=== PATIENT | male | born 1930 | race Caucasian/White ===

== ENCOUNTER 2017-12-19 11:16 | Day surgery (SDC) | payer MEDICARE ==
[2017-12-19] VITALS (8 sets, daily range): BP systolic 118–134; BP diastolic 57–78
[~2017-12-19] VITALS: Ht 165.1 cm; Wt 116.8 kg
[~2017-12-19 11:16] MED LIST: ACETIC ACID2 % OT; AMLODIPINE10 MG PO; AMLODIPINE5 MG OR; AMLODIPINE5 MG PO; ASPIRIN EC81 MG PO; ASPIRIN325 MG PO; ATIVAN1 MG PO; BISACODYL10 M2 RE; CARDIZEM CD 180 PO; CARTIA XT180 MG/24 PO; CLONIDINE0.1 MG PO; COCONUT OIL O1000 MG PO; DILTIAZEM HCL PO; DILTIAZEM HCL360 MG PO; DILTIAZEM180 M1 PO; DILTIAZEM240 M1 PO; ENALAPRIL10 MG OR; ENALAPRIL10 MG PO; ENALAPRIL20 MG PO; FERROUS SULFAT325 MG PO; FISH OIL1000 MG PO; FLOMAX0.4 M1 PO; FLUARIX QUADRIV1 IN1 IM; FLUTICASONE50 MCG; FLUZONE SPLT1 M1 IM; FUROSEMIDE20 MG PO; GLUCOSAMINE1 TA1 PO; GLUCOSAMINE1500 COM PO; GLUCOSAMINE500 M1 OR; HYDROCHLORO25 MG/TAB PO; KENALOG-4040 MG/ML IA; KLOR-CON 1010 ME1 OR; LOPRESSOR50 M1 PO; MELOXICAM15 MG PO; MEMANTINE HCL5 MG PO; METOPROL TAR50 MG OR; METOPROL TAR50 MG PO; METOPROLOL TART50 MG PO; METOPROLOL50 M1 PO; MILK OF MAG30 ML/UDC PO; MULTI VITAMN OR; MULTIVITAMIN OR; NIACIN500 M1 OR; PEPCID20 MG PO; PERCOCET 5/321 COMBO PO; PRAVASTATIN40 MG PO; PROCTOSOL HC2.5 % RE; RESTORIL15 MG PO; SENNA8.6 M1 PO; SM ASPIRIN81 MG OR; TRAMADOL HCL50 MG PO; XARELTO10 MG PO
[2017-12-20 05:05] LABS: ANION GAP 15 (6-22 (CALC)); BUN 18 mg/dL (8-23); BUN/CREATININE RATIO 19 (12-20 (CALC)); CARBON DIOXIDE 26 mmol/l (22-30); CHLORIDE 103 mmol/l (95-108); GFR > 60 ML/MIN (>=60 (CALC)); GFR FOR AFR.AMER. > 60 ML/MIN (>=60 (CALC)); POTASSIUM 4.4 mmol/l (3.5-5.1); SODIUM 140 mmol/l (137-146)
[2017-12-20 05:11] LABS: HEMATOCRIT 46.7 % (39.0-50.0); HEMOGLOBIN 15.6 g/dl (14.0-18.0); MEAN CELL VOLUME 92.1 fL CALC (80.0-100.0); MEAN CORPUSCULAR HGB 30.8 pG CALC (26.0-32.0); MEAN CORPUSCULAR HGB CONC 33.4 g/L CALC (32.0-36.0); RED BLOOD COUNT 5.07 mill/uL (4.70-6.10); RED CELL DISTRI WIDTH 12.9 % (11.5-15.5)
[2017-12-20 07:15] VITALS: BP 135/81
[2017-12-20] MEDS ORDERED: FINASTERIDE5 MG PO (08:49)
[2017-12-20 09:10] VITALS: BP 135/81
== END 2017-12-20 13:00 | disposition home or self-care (01) ==
LOC: ORM 11:16 → MS2 15:05 → ORM 12-20 13:00
PROVIDERS: Internal Medicine; ATTEND Urology
PROC: 0T5C8ZZ Destruction of Bladder Neck, Via Natural or Artificial Opening Endoscopic (ICD-10-PCS; principal; 2017-12-19)
DX: N40.1 Benign prostatic hyperplasia with lower urinary tract symptoms (principal); I10 Essential (primary) hypertension; F03.90 Unspecified dementia, unspecified severity, without behavioral disturbance, psychotic disturbance, mood disturbance, and anxiety; R97.20 Elevated prostate specific antigen [PSA]; Z87.891 Personal history of nicotine dependence